=== PATIENT | female | born 1950 | race Caucasian/White ===

== ENCOUNTER 2022-02-09 08:12 | Inpatient (IN) | payer MEDICARE, BC ==
[~2022-02-09] VITALS: Ht 157.5 cm; Wt 72.6 kg
[~2022-02-09 08:12] MED LIST: AIRBORNE TABLE1 EAC1 PO; LANTUS100 UNITS/ SUB-Q; LISINOPRIL10 MG PO; METFORMIN HCL500 MG PO; NORCO 5-325 TA1 EACH PO; NOVOLOG100 UNITS/ SUB-Q; OCUVITE TABLET1 EAC1 PO; PRAVASTATIN SOD80 MG PO
--- OUTSIDE RECORDS SUMMARY | 2022-02-09 08:14 | XMS ---
PreManage Notification: GHULAM REEVES Security Principle Software Engineer Events No recent Security Events currently on file CRITERIA MET - PDMP CARE PROVIDERS LAURA GAINESiatrlul Roach PHONE: [phone] VIRGEN FONG Internal Medicine Current PHONE: Unknown Kaycee Hernandez Physician Saddle And Harness Maker Lakeisha GRECO PHONE: Unknown TRISTIAN MCKINNEY Nurse Practitioner Current PHONE: [phone] MATTHEW JOHNSON Nurse Practitioner: Family Current PHONE: Unknown SORAIDA MAK Internal Medicine Current PHONE: [phone] MACIEJ RIVERA Nurse Practitioner Current PHONE: [phone] LULU SALCEDO I. Physician Saddle And Harness Maker Current PHONE: Unknown TADEO [facility] Current PHONE: Unknown [facility] PHONE: [phone] KELLY DOYLE Physician Saddle And Harness Maker Current PHONE: Unknown Nakia has no Care Guidelines for this patient. EKhurram VISIT COUNT (12 MO.) 2 Byron Kelley TOTAL 3 NOTE: Visits indicate total known visits. ED/UCC VISIT TRACKING (12 MO.) 02/09/2022 08:13 GURMEET [facility] [place] TYPE: Emergency COMPLAINT: - ABD PAIN 09/28/2021 14:35 Byron JAUREGUI [place] TYPE: Emergency DIAGNOSES: - Urinary tract infection, site not specified - Weakness 09/25/2021 17:39 Byron [facility] [place] TYPE: Emergency DIAGNOSES: - Weakness - Sciatica, unspecified side - Leg Pain (Non-traumatic) INPATIENT VISIT TRACKING (12 MO.) 09/28/2021 14:35 Byron [facility] [place] TYPE: General Medicine DIAGNOSES: - Urinary tract infection, site not specified [email or web address]
[2022-02-09] MEDS ORDERED: LEVEMIR100 UNIT/1 SUB-Q (09:08)
[2022-02-09] MEDS ORDERED: ADULT LOW DOSE81 MG PO (09:09)
[2022-02-09] MEDS ORDERED: TRULICITY0.75 MG/0. SQ (09:09)
[2022-02-09] MEDS ORDERED: CEPHALEXIN250 MG PO (09:11)
[2022-02-09] MEDS ORDERED: GLIPIZIDE ER5 MG PO (09:13)
[2022-02-09] MEDS ORDERED: EFFEXOR XR37.5 MG PO (09:13)
[2022-02-09] MEDS ORDERED: NORVASC10 MG PO (09:14)
[2022-02-09] MEDS ORDERED: LISINOPRIL10 MG PO (09:14)
[2022-02-09] MEDS ORDERED: NEURONTIN100 MG PO (09:16)
[2022-02-09] MEDS ORDERED: DOCUSATE SODIU100 MG PO (09:17)
[2022-02-09] MEDS ORDERED: VENLAFAXINE HCL75 M1 PO (14:34)
[2022-02-09] MEDS ORDERED: CHLORTHALIDONE50 MG PO (14:35)
[2022-02-09] MEDS ORDERED: GLIPIZIDE5 MG PO (14:36)
[2022-02-09] MEDS ORDERED: JARDIANCE25 MG PO (14:37)
[2022-02-09] MEDS ORDERED: TRULICITY1.5 MG/0.5 SUB-Q (14:39)
--- NOTE | 2022-02-09 15:06 | NUR ---
PT ARRIVED TO ROOM FROM ER TRANSPORTATED BY ASPEN LANGLEY. FRIEND ELIEL AT BEDSIDE. PT ALERT AND ORIENTED, FEARFUL AND ANXIOUS OF MOVEMENT. PT ABLE TO RESPOND AND APPROPRIATLEY ANSWER MOST ADDMISSION ASSESSMENT QUESTIONS WITH HELP FROM FRIEND. PT THEN BECAME NAUSEAUS - PRN MEDS GIVEN- SMALL AMOUNT OF DARK BROWM EMISIS NOTED. PT DENIES PAIN BUT DOES CRY OUT "NO" WHEN MOVING HER LIMBS. HEEL PROTECTORS APPLIED AND PILLOW PLACED BETWEEN LEGS TO PREVENT FURTHER BREAKDOWN, WILL NEED TURNING Q2H. BED ALARM ON.
[2022-02-09] MEDS ORDERED: MIRALAX119 GM PO (15:16)
[2022-02-09] MEDS ORDERED: PREVAGEN PO (15:17)
[2022-02-09] MEDS ORDERED: SENNA-PLUS TAB1 EACH PO (15:18)
[2022-02-09] MEDS ORDERED: TRAMADOL HCL50 MG PO (15:20)
[2022-02-09] MEDS ORDERED: ONDANSETRON HCL4 MG PO (15:20)
[2022-02-09] MEDS ORDERED: ACETAMINOPHEN325 M1 PO (15:21)
[2022-02-09] MEDS ORDERED: LAXATIVE5 M1 PO (15:22)
[2022-02-09] MEDS ORDERED: FLEET ENEMA133 ML PR (15:23)
[2022-02-09] MEDS ORDERED: DULCOLAX10 MG PR (15:23)
[2022-02-09] MEDS ORDERED: LIDOCAINE PAIN1 EACH TOP (15:25)
--- NOTE | 2022-02-09 15:37 | NUR ---
medications reconciled using [facility]. Several changes
--- NOTE | 2022-02-09 16:00 | NUR ---
SCHEDULED MEDS ADMINISTERED. IV FLUID BOLUS INFUSING WITHOUT COMPLICATIONS. PT RESTING WITH EYES CLOSED AND HEAD OF BED ELEVATED WITHOUT DISTRESS. PICTURES OF HEEL AND GLUTE WOUND TAKEN UPON INITIAL ASSESSMENT AND PLACED IN CHART.
--- NOTE | 2022-02-09 17:20 | NUR ---
RN IN ROOM TO TURN PT. PT REPOSISTIONED. PT NOTED TO HAVE A CHANGE IN RESPONSE BEHAVIOR - WILL OPEN EYES TO VOICE AND TOUCH BUT WITHOUT VERBAL RESPONSE DESPITE CUING AND EYE CONTACT. SHEET METAL DUCT INSTALLER HELPER STRENGTH ABSENT WHEN PREVIOUSLY VERY STRONG IN RIGHT HAND. CBG CHECKED - 170, VS TAKEN - STABLE AND WNL. DR. MAE NOTIFIED OF CHANGE IN STATUS - REQUEST TO CONTINUE TO MONITOR PT.
--- NOTE | 2022-02-09 17:30 | NUR ---
Integumentary assessment complete and pictures taken by this RN and placed in chart. Large necrotic, scaling discolored pressure ulcer on R heel, per report Dr Up following this wound outpatient. L heel also has pressure ulcer, dry and crusty, yellow/red in color. Approx 2 inch blister on L gluteal cleft, purple/red in color, no open area noted. Pt given bed bath, wipes come away yellow and brown in color over chest and arms. Noted yellow brown material under fingernails. Pt scalp scaling similar to "cradle cap", several bumps within hair.
--- NOTE | 2022-02-09 17:45 | NUR ---
DR. MAE NOTIFIED THAT PT HAS NOT VOIDED SINCE ON THE FLOOR. FLUID BOLUS RUNNING PER ORDERS.
--- NOTE | 2022-02-09 18:00 | NUR ---
RN IN ROOM TO REASSESS PT. PT NOW RESPONDING WITH VERBAL RESPONSE MORE CLEARLY - SOME DELAY IN RESPONSE. PT BEGAN VOMITING - MOSTLY DRY HEAVING. PRN MED ADMINISTERED.
--- NOTE | 2022-02-09 19:44 | NUR ---
REPORT RECEIVED FROM ASPEN TRUONG. pt SLEEPING, AWAKENS TO VOICE, DROWSY. ALERT AFTER A FEW SECONDS OF AWAKENING. DENIES NEEDS AT THIS TIME. EMESIS BAG NEXT TO pt. CALL LIGHT IN REACH, AND INSTRUCTION PROVIDED TO USE CALL LIGHT. pt VERBALIZES UNDERSTANDING.
--- NOTE | 2022-02-09 21:15 | NUR ---
2 PA. THIS BLOCK SAWYER AND RES HABILITATION ASSISTANT SINAN GAVE PATIENT PARTIAL BED BATH AND CLEANED FROM INCONTINENT OF URINE. APPLIED BARRIER CREAM AND FRESH ATTEND. BED ALARM ON FOR SAFETY.
--- NOTE | 2022-02-09 21:57 | NUR ---
pt VOMITTING, SMALL AMT BROWN EMESIS IN BAG. OPERATIONS AND MAINTENANCE MANAGER SINTA IN ROOM. PRN ANTI EMETIC ADMINISTERED IV. IV SITE FLUSHED WNL. IVF INFUSING ORDERED. ASSESSMENT COMPLETE. pt IS ORIENTED TO PERSON, , THAT SHE IS IN A HOSPITAL, pt UNSURE OF DATE/YEAR, THINKS SHE IS IN [place]. REORIENTATION PROVIDED. INCONTINENT OF URINE AND SMALL AMT STOOL. FULL BEDDING CHANGE. pt PAIN FUL WITH REPOSITIONING, DESCRIBES PAIN IN BACK, NECK, HEELS WITH TURNING. REDDENED AREAS NOTED ON HEELS BIALTERALLY AND COCCYX AREA. ALLEVYN APPLIED TO COCCYX. pt DENIES ABD PAIN. pt REPOSITIONED, FLOATING WITH PILLOWS UNDER HIPS BILATERALLY. TWO ATTEMPTS AT NEW IV START pt BENDING ARMS WITHOUT SUCCESS. CALL LIGHT IN REACH. BED ALARM ON.
--- NOTE | 2022-02-09 23:32 | NUR ---
CHECKED ON pt. RESTING IN BED WITH EYES CLOSED. BREATHING UNLABORED. NO DISTRESS NOTED. IV SITE ASSESSED, IVF INFUSING WNL. BED ALARM IN PLACE.
--- NOTE | 2022-02-10 00:38 | NUR ---
RECEIVED REPORT FROM SINAN LOUISE CHARGE TO ASSUME CARE AT THIS TIME. PT IS RESTING IN BED HIPS FLOATED ON PILLOWS, HER EYES ARE CLOSED RR REGULAR AT 16 BPM. NO DISTRESS NOTED AT THIS TIME.
--- NOTE | 2022-02-10 01:46 | NUR ---
PT ALERT, SHE IS ABLE TO ANSWER BY NODDING HEAD OR SHAKING HER HEAD BACK AND FORTH FOR "NO". SHE IS COUGHING AND PRODUCING SPUTUM, SUCTION SET UP AT BEDSIDE TO ASSIST PT WITH CLEARING SUCRETIONS. SHE SAID NO AND SHOOK HER HEAD. WHEN ASKED IS FEELING LIKE SHE MIGHT VOMIT. ZOFRAN IV 4MG ADMINISTERED TO TO PT GAGGING AND DRY RETCHING.
--- NOTE | 2022-02-10 02:06 | NUR ---
THIS LICENSED OPTICIAN AND PRIMARY RN ASHLEY Singh CHANGED PATIENT'S INCONTINENT BM AND URINE. V/S AND I&O'S TAKEN AND CHARTED. ASPEN BIRD WAS WITH PATIENT TO START IV.
--- NOTE | 2022-02-10 02:21 | NUR ---
attempted to find another IV site, pt has iv to ac, keeps bending arm. attempted at right wrsit area, got flash but unable to thread, pt cries out in pain. unsuccessful. gauze and coban applied
--- NOTE | 2022-02-10 04:14 | NUR ---
PT CALLING OUT, SAYING "HELP ME, HELP ME, HELP ME" THIS RN INTO PT ROOM TO ASSESS. PT SAID "IT HURTS IT HURTS"WHEN ASKED WHAT HURTS PATTED HER ABD WITH HER RIGHT HAND, THIS RN ASKED "DO YOU FEEL LIKE YOU ARE GOING TO VOMIT" PT NODDED HER HEAD YES. PT ADMINISTERED PHENERGAN 12.5MG IV IN 20ML NS SLOW PUSH AT BEDSIDE.
--- NOTE | 2022-02-10 05:06 | NUR ---
PT HAS BEEN TURN Q2 HOURS OVER SHIFT FOR CURRENT SKIN BREAK DOWN ISSUES, SHE HAS REPORT NAUSEA/ OR INDICATED PAIN AT HER ABD, THIS HAS BEEN HER ONGOING COMPLAINT SINCE ADMISSION. SHE HAS HAD ZOFRAN X1 AND PHENERGAN X2 OVER THIS SHIFT. SHE HAS SLEPT INTERMITTEN, SHE HAS HAD TWO LARGE INCONT, OF STOOL AND URINE, URINE X1 ALONE. SHE HAS BEEN ALERT AND VERBALIZES APROPRIATELY OCCASIONALLY. NO NEW CONCERNS OVER THIS SHIFT.
--- NOTE | 2022-02-10 05:42 | NUR ---
IV PUMP ALARMING, NEW BAG IVF INFUSING WNL. pt SNORING, EYES CLOSED. NO DISTRESS NOTED.
--- NOTE | 2022-02-10 07:00 | NUR ---
V/S AND I&O'S TAKEN AND CHARTED. CHANGED INCONTINENT URINE AND PUT FRECH ATTENDS. BED ALARM ON FOR SAFETY.
--- NOTE | 2022-02-10 07:50 | NUR ---
REPORT RECEIVED FROM NIGHT RN - PT ASLEEP IN BED, NO DISTRESS NOTED. CALL LIGHT IN REACH.
--- NOTE | 2022-02-10 09:06 | NUR ---
RN IN ROOM TO ASSESS PT AND ADMINISTER SCHEDULED MEDS. PT EASILY AROUSABLE, MOANS AND SAYS "NO" WITH ALL QUESTIONS AND MOVEMENT. PT WAS ABLE TO VERBALIZE "I FEEL AWFUL". PT PROVIDED WARM BLANKETS AND REPOSISTIONED IN BED. NOTABLE DIFFICULTY SWALLOWING AND SUCKING FROM STRAW WITH ONE EPISODE OF COUGHING AFTER SWALLOW OF WATER. PT OCCASIONALLY DRY HEAVING - USES SUCTION BY SELF - MOSTLY COLLECTING SALIVA. IV SITE ASSESSED. TOWEL AROUND ELBOW TO HELP KEEP IT STRAIGHT. IV FLUIDS RUNNING. CALL LIGHT IN REACH.
--- NOTE | 2022-02-10 10:06 | NUR ---
RN AND POWDER COMPOUNDER IN ROOM TO REPOSITION PT AND PROVIDE BED BATH. PT TOLERATED WELL. ATTENDS SATURATED WITH URINE. LINENS CHANGED. NEW IV FLUIDS AND ABX STARTED.
--- NOTE | 2022-02-10 10:35 | NUR ---
Attempted to speak with pt. She is unable to answer questions and is anxious. She shakes head yes when asked if she lives at [facility], but cannot answer how long she has lived there. She is unable to answer further questions. Pt has just had a bedbath and RN remains in the room. She states her concern as pt has been bathed x 3 and was very dirty. She states she had feces crusted in creases and under finger nails. I viewed the wounds on pts heels and one is a callus and other is decub. Pt has a poa I attempted to call, but could not reach. Called and spoke with Anay Beck, at [facility]. She states pt is chair/bedbound. Transfer pt, works with PT, but is not able to walk. Pt is able to feed herself. She is aware of the wounds on her heels and buttocks. She does not have any infor about where pt lives or family. Spoke with RN that bathed pt to- day and discussed a referral to [facility] and she would like this. Plan is for pt to return to [facility] and I will call [facility] and ask them to assess this pts situation as this is a patient that transferred into their SNF.
--- NOTE | 2022-02-10 10:58 | NUR ---
Called and spoke with Margo Elmore from [facility] and gave info. Updated to pts uncleanliness, wounds, and difficulty speaking. Let her know this is not how we usually see pts from [facility] and their RN said this pt was transferred into them.
--- NOTE | 2022-02-10 12:06 | NUR ---
PT RESTING IN BED WITH EYES CLOSED. RR UNLABORED. HEAD OF BED ELEVATED. BED ALARM CLAIM TECHNICIAN LIGHT IN REACH.
--- NOTE | 2022-02-10 12:45 | NUR ---
Spoke with pts Erum DRISCOLL. She states she and Mariaelena have been friends for 30+ years. Pt was in the hospital in [facility] and there were no SNF beds available on dc so she came to [facility]. Pt remains a 2 person assist and Erum is attempting to help her with detention medicaid and bills. Pt is nearly out of SNF days and will have to start paying out of pocket. Pt would like to move to an assisted living or residential care. Pt does not currently have [place] medicaid. Gave Erum a list of assisted livings, residential cares, and Adult foster cares in this area. The concern is pt requires a 2 person assist and is not able to transfer. I called and spoke with [facility] and they do take 2 person assist pts at times. Will let Erum know.
--- NOTE | 2022-02-10 14:00 | NUR ---
PRN zofran administered for nausea, pt repositioned and bedding/gown changed. IV ABX infusing at this time, non compatible with mag sulfate, 1 ultrasound IV site available, awaiting completion of ABX to start mag sulfate.
--- NOTE | 2022-02-10 14:30 | NUR ---
PATIENT IN BED RESTING AT THIS TIME. ATTENDS CHECKED, NO VOID, RN AWARE. VITALS AND I&O'S CHARTED. CALL LIGHT IN REACH. NO FURTHER NEEDS AT THIS TIME.
--- NOTE | 2022-02-10 14:59 | NUR ---
RN IN ROOM TO ASSESS PT. PT RESTING WITH EYES CLOSE, EASILY AROUSABLE BY VOICE. PT STATES "YES" TO NAUSEA - NO EMESIS OR EVIDENCE OF NAUSEA NOTED BY BEHAVIOR. SCHEDULED IV MEDS ADMINISTERED, IV SITE TOLERATING FLUIDS WELL. EMESIS BAG AND SUCTION IN PTS HAND. BED ALARM ON. PT VISIBLE FROM NURSES STATION. NO DISTRESS NOTED.
--- NOTE | 2022-02-10 15:28 | NUR ---
SPEECH THERAPY IN ROOM PERFORMING SWALLOW ASSESSMENT ON PT.
--- NOTE | 2022-02-10 16:01 | NUR ---
Called Erum and holger, [facility] can take 2 person assist pts and also will accept medicaid pts. Let her know there is always a waiting list and she would need to call and get Mariaelena on the list. She states she has already spoken with [facility] and they do not take any medicaid. Let her know [facility] will take a certain number of medicaid pts, but their wait list is also very long.
--- NOTE | 2022-02-10 16:34 | NUR ---
RN IN ROOM TO CHANGE PTS ATTENDS - FULLY SATURATED WITH URINE. PT REPOSISTIONED IN BED AND PROPTED TO OPPOSITE SIDE. HEAD OF BED ELEVATED, TV TURNED ON. SCHEDULED IV MEDS STARTED. BED ALARM ON - SUCTION IN HAND.
--- NOTE | 2022-02-10 18:36 | NUR ---
PT ABLE TO INCREASE DIET THROUGOUT DAY WITH DECREASED NAUSEA. VOIDING FREQUENTLY - QUANITY SUFFICENT. PAIN MANAGMENT ENCOURAGED. AMBULATED IN HALLWAY WITH WEIGHT TRAINER TAKING FREQUENT RESTS. PT ALSO TOLERATED SHOWER THIS EVENING. CONTINUE PLAN OF CARE TO ADDRESS HYDRATION AND PAIN.
--- NOTE | 2022-02-10 18:42 | NUR ---
PT MORE ALERT THROUGHOUT SHIFT. VOIDING QS IN ATTENDS. NO VOMITING TODAY, SELF SUCTIONING SALIVA FOR COMFORT. IV FLUIDS INFUSING, SMALL AMOUNT OF PO INTAKE - CLEAR LIQUIDS - NEEDS PROMPTING. SWALLOW EVAL COMPLETE. TURNED Q2 WITH HEEL PROTECTORS IN PLACE. CASE MANAGMENT DISCUSSED PLAN OF CARE WITH POA.
--- NOTE | 2022-02-10 19:15 | NUR ---
REPORT RECEIVED FROM DAY SHIFT RN. PT LYING ON LEFT SIDE WITH EYES CLOSED. RESPIRATIONS EVEN. WHITE BOARD UPDATED. CALL LIGHT IN REACH. BED ALARM FOR SAFETY.
--- NOTE | 2022-02-10 21:40 | NUR ---
V/S AND I&O'S TAKEN AND CHARTED. PATIENT WAS WIPED/ CLEANED. CHANGED NEW GOWN, DRAW SHEET, ATTENDS, CHUX AND FRESH LINEN. PATIENT REPOSITIONED. NO OTHER CARE NEEDS AT THIS TIME. BED ALARM ON FOR SAFETY.
--- NOTE | 2022-02-10 22:07 | NUR ---
EVENING ASSESSMENT COMPLETE. SCHEDULED MEDS ADMINISTERED PER EMAR. PT NON VERBAL DURING CARES. SHAKES HEAD YES OR NO TO SIMPLE QUESTIONS. PT ABLE TO FOLLOW COMMANDS. HOB ELEVATED FOR PILL ADMIN. NO SWALLOWING ISSUES NOTED. DENIES PAIN OR NAUSEA. PT INCONTINENT OF URINE. RANULFO CARE DONE AND CLEAN BRIEF PLACED. 2PA TO REPOSITION IN BED WITH PILLOWS TO RIGHT SIDE. HEELS FLOATED AND HEEL PROTECTORS IN PLACE. PT DENIES FURTHER NEEDS. CALL LIGHT IN REACH.
--- NOTE | 2022-02-11 00:24 | NUR ---
CALL LIGHT ON. IN TO CHECKED PATIENT'S NEEDS. PATIENT DENIES ANY NEEDS. PATIENT IS HOLDING THE SUCTION TIGHT BUT DID NOT WANT TO PUT IT ON HER MOUTH. THIS ANESTHESIOLOGY PHYSICIAN EXPLAINED TO USE AND DEMONSTRATED IT. PATIENT NODDED HER HEAD. TV TURNED OFF. PATIENT CLOSES HER EYES THIS ANESTHESIOLOGY PHYSICIAN LEFT THE ROOM. BED ALARM REMAINED SET ON.
--- NOTE | 2022-02-11 00:56 | NUR ---
2PA TO REPOSITION IN BED. ASSISTED WITH ORAL CARE. PT DENIES FURTHER NEEDS. CALL LIGHT IN REACH.
--- NOTE | 2022-02-11 01:59 | NUR ---
PT INCONTINET OF URINE. RANULFO CARE DONE AND CLEAN BRIEF PLACED. 2PA TO REPOSITION IN BED WITH PILLOWS TO LEFT SIDE. PT NON VERBAL DURING CARES. SHAKES HEAD YES/NO TO SIMPLE QUESTIONS. PT DENIES FURTHER NEEDS. CALL LIGHT IN REACH.
--- NOTE | 2022-02-11 03:09 | NUR ---
IV PUMP ALARMING. NEW BAG IVF INFUSING WNL. PT RESTING WITH EYES CLOSED. CALL LIGHT IN REACH.
--- NOTE | 2022-02-11 06:04 | NUR ---
VS AND I&O COMPLETE. PT INCONTINENT OF URINE. RANULFO CARE DONE. CLEAN BRIEF PLACED. 2PA TO REPOSITION WITH PILLOWS IN BED. SIPS OF WATER PROVIDED. PT SHAKES HEAD NO WHEN ASKED IF SHE IS IN PAIN OR NAUSEOUS. NO FURTHER NEEDS. CALL LIGHT IN REACH.
--- NOTE | 2022-02-11 06:09 | NUR ---
CLEANED PATIENT FROM INCONTINENT URINE. CHANGED CHUX AND PLACED FRESH ATTEND. PATIENT REPOSITIONED. BED ALARM ON. SUCTION ON HAND. CALL LIGHT IN REACH.
--- NOTE | 2022-02-11 06:29 | NUR ---
MORNING LABS DRAWN. PT NOTED TO BE SPITTING SALIVA. WHEN ASKED IF NAUSEOUS PT NODDED YES. PRN FOR N/V ADMIN PER EMAR. FACE CLEANED. HOB ELEVATED.
--- NOTE | 2022-02-11 07:40 | NUR ---
REPORT RECEIVED FROM STEVE RN. CARE PLAN REVIEWED - NO CHANGES MADE AT THIS TIME. WILL CONTINUE TO CONSULT WITH CASE MANAGEMENT FOR FAMILY DAY CARE WORKER CARE PLAN FOR PT.
--- NOTE | 2022-02-11 08:45 | NUR ---
Pt repositioned in bed with pillows, bed bath given and gown changed, face cleansed and hair brushed. Incontinent void in attends changed, emily care complete, dry attends in place. Noted approx 1 inch reddened area, barrier cream applied. Allevyn intact on proximal gluteal blister. IVF infusing WNL. Pt able to nod yes/no to questions only, denies PO fluids or jello, accepts small sip of water. Heel protectors in place. Warm blankets provided and patient nods yes when asked if comfortable. Call light in reach, suction in reach, pt visible from nurses station.
--- NOTE | 2022-02-11 10:35 | NUR ---
CALL PLACED TO HOSPITALIST. INFORMED OF CONCERN OF CHANGE IN MENTAL STATUS. EXPRESSIVE APHASIA WORSENED WITH ZERO VERBAL RESPONSE TO QUESITONS AND DIRECTIONS. ALSO NOTIFIED MD OF ABDOMINAL PAIN PT RATES 8/10 USING FACES SCALE WITH ABSENT BOWEL TONES. ABDOMINAL XRAY ORDERED AND ACKNOWLEDGED.
--- NOTE | 2022-02-11 11:00 | NUR ---
Spoke with pt and she is more alert and less anxious. Able to answer questions. She states she likes the people at [facility]. States concern as she will not be able to be able to pay to continue to stay there. Discussed I gave her POA a list of places in [place]. She would like to move to this area so she can be near [place] her POA. Dr Hernandez in and assessed pt. He updated her she will be here 1-2 more days until cultures are returned.
--- NOTE | 2022-02-11 12:27 | NUR ---
RN IN ROOM TO REPOSITION PT AND ADMINISTER SCHEDULED MEDS. PT DENIES PAIN. WAS HELPFUL IN REMOVING HER BLANKETS AND LIFTED MED CUP TO MOUTH HERSELF. ATTENDS DRY- NOT CHANGED. IV SITE INFUSING WELL- NO INCREASED SWELLING OR REDNESS. PT NOT INTERESTED IN EATING LUNCH TRAY, ALL ITEMS OFFERED TO PTS MOUTH AND DENIED. WILL CONTINUE TO ENCOURAGE FLUID INTAKE. CALL LIGHT IN REACH CIRCUIT BOARD INSPECTOR SERVICES IN ROOM.
--- NOTE | 2022-02-11 12:58 | NUR ---
CHECKED ON PT-SHE SEEMED UNABLE TO SPEAK, BUT DID KNOD HER HEAD FOR YES AND NO ANSWERS. SHE KNODDED YES TO HAVE GROUP MANAGING DIRECTOR COME IN TODAY, INFORMED FR EMERSON. HE IS GOING TO VISIT FOLLOWING [facility] TODAY. GAVE BLESSING AND WILL FOLLOW NEEDED
--- NOTE | 2022-02-11 13:50 | NUR ---
FRIEND ELIEL IN ROOM VISITING WITH PT AT BEDSIDE. PT ALERT AND ENGAGED IN CONVERSATION WITH HER. NO DISTRESS NOTED. CALL LIGHT IN REACH.
--- NOTE | 2022-02-11 14:06 | NUR ---
PATIENT IN BED RESTING AT THIS TIME. INCONT. VOID. RANULFO CARE DONE. NEW ATTENDS IN PLACE. VITALS AND I&O'S CHARTED. CALL LIGHT IN REACH. NO FURTHER NEEDS AT THIS TIME.
--- NOTE | 2022-02-11 15:40 | NUR ---
RN IN ROOM TO ADMINISTER SCHEDULED MEDS. PT SITTING UP IN BED WATCHING TV. REPOSITIONED IN BED WITH HEELS FLOATED IN HEEL PADS. DRY ATTENDS - NOT CHANGED. PT DENIES PAIN AND NAUSEA. VS STABLE AND FOCUSED ASSESSMENT COMPLETE.
--- NOTE | 2022-02-11 16:29 | NUR ---
Nails cleaned and filed. Pt responds well and nods when asked permission, relief noted. Moisturized hands and arms. Pt resting in bed watching tv.
--- NOTE | 2022-02-11 18:38 | NUR ---
PT CONTINUES TO HAVE EPISODES OF IMPROVED COGNATION AND COMMUNICATIONS THROUGHOUT DAY. SHE DENIES PAIN THIS AFTERNOON. NO EMISIS OR SIGNS OF NAUSEA. PT NEEDS ENCOURAGED TO DRINK FLUIDS. CONTINUING TO REPOSITION PT TO PREVENT FURTHER BREAKDOWN ON COXYX AND HEELS. ELECTROLYTE BALANCE CORRECTION CONTINUES TO BE ADDRESSED WITH IV FLUIDS.
--- NOTE | 2022-02-11 19:28 | NUR ---
REPORT RECEIVED FROM DAY SHIFT RN. PT LYING IN BED RESTING WITH EYES CLOSED. RESPIRATIONS EVEN. CALL LIGHT IN REACH. BED ALARM ON. WHITE BOARD UPDATED.
--- NOTE | 2022-02-11 21:55 | NUR ---
ASSISTED PRIMARY RN JOSE. V/S AND I&O'S TAKEN AND RECORDED. CLEANED AND CHANGED INCONTINENT ATTENDS. PATIENT REPOSITIONED. BED ALARM ON FOR SAFETY. CALL LIGHT IN REACH.
--- NOTE | 2022-02-11 22:00 | NUR ---
EVENING ASSESSMENT COMPLETE. SCHEDULED MEDS ADMINISTERED PER EMAR. HOB ELEVATED. NO SWALLOWING ISSUES NOTED. PT NON VERBAL EXCEPT YES OR NO TO SOME QUESTIONS. DOES SHAKE HEAD YES OR NO. DENIES PAIN OR NAUSEA. INCONTINENT OF URINE. RANULFO CARE DONE AND CLEAN BRIEF PLACED. ALLEVYN ON COCCYX AREA CDI. OLD WOUNDS ON BILAT HEELS NOTED. HEEL PROTECTORS IN PLACE. ELEVATED TEMP NOTED. PT REPORTS SHE IS TOO HOT. EXTRA BLANKETS REMOVED. HOB LEFT ELEVATED AFTER PO DESIGN DRAFTSMAN. PT DENIES FURTHER NEEDS. CALL LIGHT IN REACH. PT IN VIEW OF NURSES STATION.
--- NOTE | 2022-02-11 22:58 | NUR ---
TEMP DOWN TO 98.2. SIPS OF WATER PROVIDED. PT REPOSITIONED IN BED WITH PILLOWS.
--- NOTE | 2022-02-12 00:01 | NUR ---
PT RESTING IN BED WITH EYES CLOSED. RESPIRATIONS EVEN. CALL LIGHT IN REACH.
--- NOTE | 2022-02-12 02:27 | NUR ---
PT INCONTINENT OF LARGE AMOUNT OF URINE. RANULFO CARE DONE. CLEAN ATTENDS PROVIDED. 2PA TO REPOSITION. WARM BLANKET PROVIDED. PT SHAKES HEAD YES WHEN ASKED IF SHE IS COMFORTABLE.
--- NOTE | 2022-02-12 06:04 | NUR ---
VS AND I&O COMPLETE. PT INCONTINENT OF LARGE AMOUNT OF URINE. RANULFO CARE DONE AND DRY BRIEF PLACED. PT REPOSITIONED WITH PILLOWS IN BED. PT DENIES PAIN OR NAUSEA. WARM BLANKET PROVIDED. BED ALARM IN PLACE.
--- NOTE | 2022-02-12 07:30 | NUR ---
report recieved from scene shifter RN pt resting in bed, no needs at the moment, per report nonverbal but nods at questions, bed rest turn q2, no other needs
--- NOTE | 2022-02-12 09:07 | NUR ---
RN IN ROOM TO DO MORNING ASSESSMENT AND MEDICATIONS, PT AWAKE AND ALERT, TALKING WITH STAFF, WHEN ASKED HER HER NAME AND PT STATES "WHY DO YOU NEED TO KNOW" ASKED PATIENT IF SHE KNEW WHERE SHE WAS AT PT STATED YES BUT DID NOT GO INTO DETAIL, DENIES ANY PAIN, RANULFO CARES DONE AND TURNED ON TO R SIDE,
--- NOTE | 2022-02-12 11:09 | NUR ---
RN in room with LUCRETIA lara to do bed bath, pt not happy with staff providing a bed bath, yelling at staff to stop, emily cares done and foam dressings placed on heels , heels protectors seem fall off, extra protection ot pressure points
--- NOTE | 2022-02-12 11:14 | NUR ---
PT BED BATH DONE, HAIR WASHED, REPOSITIONED LEFT, CALL LIGHT WITHIN REACH NO ASSISTANCE NEEDED AT THIS TIME.
--- NOTE | 2022-02-12 11:36 | NUR ---
PT CBG CHECKED, 151 BLOOD SUGARS
--- NOTE | 2022-02-12 12:36 | NUR ---
OFFERED PT LUNCH, PROTEIN DRINK, MILK AND WATER. PT REFUSED ALL. PROTEIN DRINK LEFT AT BEDSIDE. PT JUST WANTS TO SLEEP.
[2022-02-12] MEDS ORDERED: NORVASC10 MG PO (12:56)
[2022-02-12] MEDS ORDERED: CEFEPIME HCL2 GM IV (13:04)
--- NOTE | 2022-02-12 14:30 | NUR ---
Spoke with pts AMERICO and she would like me to contact [facility] to check if they have a bed. Let her know I can send the chart, but pt will need to return to [facility] until a bed opens. She states understanding. Called and spoke with Elpidio and she states they do not currently have a bed open, but will put pt on their list. FAxed face sheet, H&P, progress notes, ST note, med list to [facility].
--- NOTE | 2022-02-12 14:33 | NUR ---
PATIENT REPOSITIONED ONTO RIGHT SIDE. PATIENT INCONTINENT OF URINE. NEW BRIEF AND PAD PROVIDED. CALL LIGHT IN EASY REACH
--- NOTE | 2022-02-12 15:17 | NUR ---
jamel [facility] nurse here to start midline on pt
--- NOTE | 2022-02-12 15:35 | NUR ---
Orders, dc summary, PASRR, cultures, progress note, med list faxed to [facility] for pt to return tomorrow. Scheduled wc van for pick at 0900, they will poultry picker a wc from [facility] at 0830 tomorrow am. Pt does not need a covid swab as this will complete at the [facility].
--- NOTE | 2022-02-12 15:40 | NUR ---
Received message from [facility], pt will need a PICC line. Let them know this is being completed. Chart placed in envelope with [employer] info to give to Charge nurse in AM.
--- NOTE | 2022-02-12 15:59 | NUR ---
MIDLINE INSERTION NOTE: ASKED BY DR. MAE TO EVALUATE PATIENT FOR POTENTIAL MIDLINE PLACEMENT, FOR 2+ WEEKS OF IV ABX STILL NEEDED TO TREAT INFECTION. PT IS DISCHARGING TOMORROW TO [facility] AND WILL RECEIVE IV THERAPY THERE. PATIENT INTERVIEWED AND CHART REVIEWED. PATIENT AGREEABLE TO MIDLINE AFTER DISCUSSING WITH HER THE RISK AND BENEFITS. PT AT FIRST KEPT SAYING, "WHY CAN'T I JUST GET MY ANTIBIOTICS HERE?" EXPLAINED TO PATIENT THAT SHE IS BEING DISCHARGED TO [facility] AND THAT HER ANTIBIOTICS WILL NEED TO CONTINUE FOR 2+ WEEKS. PT AGREEABLE. PT HAS CURRENT IV IN RIGHT CEPHALIC VEIN FROM U/S START 2 DAYS AGO. PATIENT'S RIGHT ARM EVALUATED SINCE THE LEFT IS A RESTRICTED EXTREMEITY. BASILIC VEIN WAS EASILY IDENTIFIED AND LOOKED TO BE A LARGE SUITABLE CANDIDATE FOR THE 18 G POWERGLIDE PRO MIDLINE. PATIENT'S SKIN WAS PREPPED WITH CHLORAPREP AND THEN 1% LIDOCAINE WAS USED TO NUMB HIS SKIN. MIDLINE WAS THEN ABLE TO BE INSERTED AFTER PREPPING ARM FOR STERILE PROCEDURE WITHOUT PROBLEM. TIP OF MIDLINE WAS VISUALIZED AND ABLE TO BE ADVANCED SLOWLY AND THEN CATHETER INSERTED W/O DIFFICULTY. DARK, BRISK NON PULSATILE BLOOD RETURNED AND SITE FLUSHING WELL. STERILE DRESSING APPLIED OVER TOP WITH BIO PATCH UNDER. IV FROM RIGHT CEPHALIC D/C PER PT'S PRIMARY NURSE LEVY. PATIENT GIVEN EDUCATION REGARDING HER IV AND ASKED TO ASK QUESTIONS IF SHE HAS ANY CONCERNS REGARDING THIS LINE. EDUCATION MATERIAL LEFT IN CHART TO BE TRANSFERRED TO WBT WITH [facility] TOMORROW.
--- NOTE | 2022-02-12 19:31 | NUR ---
PT LAYING ON LEFT SIDE. BED ALARM ON. IVF INFUSING. HEEL PROTECOTRS INPLACE. EYES CLOSED, NO DISTRESS.
--- NOTE | 2022-02-12 21:20 | NUR ---
CALL LIGHT ON, IN TO CHECK ON PT, PT ASKED IF STAFF CAN DIAL A PHONE NUMBER FOR HER, PT DID NOT REMEMBER THE NUMBER AT THIS TIME, WILL TRY AGAIN, VS DONE, PT REPOSITIONED TO THE RIGHT SIDE, NEW ATTENDS IN PLACE DUE TO INCONT OF URINE, WATER AND JUICE PROVIDED TO PT, NO FURTHER NEEDS AT THIS TIME, BED ALARM IS SET
--- NOTE | 2022-02-12 22:05 | NUR ---
pt non verbal, repositioned in bed, turned to R side. on room air, lungs clear sligh dim at bases, no cough, on pureed diet with moderatedly thickened liquids. CBG 87s, received semglee 5 units sc and oj with 2 packets of sugar. meds given crushed in puding as she spitted it out, took juice well after much encouragement. Allevyn to buttocks and heels, bruised areas over arms knee healing. R midline infusing IVF and cefepime. WAs incontinent of large amounts of urine, call light at hands reach. pt is to be dc'd in am.
--- NOTE | 2022-02-12 23:25 | NUR ---
RESTING, EYES CLOSED, NO DISTRESS, IVF INFUSING, TURNED AND REPOSITIONED
--- NOTE | 2022-02-13 01:18 | NUR ---
awakes easily, on room air, coop with assessment, turned and repositioned, incontinent of urine, clkean attends, barrier cream, allevyn in place. IVF infusing w/o problems RAC midline patent. call light at hands reach
--- NOTE | 2022-02-13 03:43 | NUR ---
AWAKES EASILY, REPOSITIONED, DRY ATTENDS, IVF INFUSING W/O PROBLEMS. HEEL PROTECTORS INPLACE
--- NOTE | 2022-02-13 05:17 | NUR ---
pt turned and repositioned q2h, incontinent of urine. barrier cream, allevyn to between R buttocks area, heels. heel protectors inplace. L sided weakness and deficit, L eye non reactive. IVF infusing R midline patent. cbg was 87, received juice with sugar packet. after much encouragement, meds given crushed as she kept spitting them out, on thickened liquid. verbal at times. moves r arm well. all procedures explained to pt. On room air. Pt is to be dc'd to [facility] this am.
[2022-02-13] MEDS ORDERED: JANUVIA100 MG PO (09:29)
== END 2022-02-13 09:14 | DRG 682 ==
LOC: ED 08:12 → MS 14:11
PROVIDERS: ADMIT Internal Medicine; ATTEND Internal Medicine
DX: N17.9 Acute kidney failure, unspecified (principal); G93.41 Metabolic encephalopathy; Z20.822 Contact with and (suspected) exposure to COVID-19; N10 Acute pyelonephritis; Z66 Do not resuscitate; F03.90 Unspecified dementia, unspecified severity, without behavioral disturbance, psychotic disturbance, mood disturbance, and anxiety; E87.6 Hypokalemia; E83.42 Hypomagnesemia; G89.4 Chronic pain syndrome; F39 Unspecified mood [affective] disorder; E11.65 Type 2 diabetes mellitus with hyperglycemia; E86.0 Dehydration; Z86.73 Personal history of transient ischemic attack (TIA), and cerebral infarction without residual deficits; Z90.710 Acquired absence of both cervix and uterus; Z90.722 Acquired absence of ovaries, bilateral; Z88.0 Allergy status to penicillin; Z91.048 Other nonmedicinal substance allergy status; Z79.4 Long term (current) use of insulin; Z79.82 Long term (current) use of aspirin; Z79.899 Other long term (current) drug therapy
CPT/HCPCS: 36415; 36569; 51798; 74018; 74176; 80048; 80053; 80503; 81001; 83690; 83735; 85025; 87088; 92526; 92610; 96365; 96366; 96375; 99285-25; A9270; C1751; C9113; C9803; J0692; J0696; J0780; J1170; J1650; J1815; J2405; J2550; J3475; J3480; J7030; J7120; J7121; U0003